=== PATIENT | male | born 1940 | race Two or more races ===

== ENCOUNTER 2025-03-07 14:31 | Inpatient (IN) | payer MEDICARE, OTHER ==
[~2025-03-07] VITALS: Ht 180.3 cm; Wt 106.1 kg
[2025-03-07 14:41] VITALS: O2SAT 98
[2025-03-07 15:21] LABS: ABG BASE EXCESS 5.5 mmol/L (-2.0-3.0); ABG OXYGEN SATURATION 94.4 % (94.0-98.0); ABG PCO2 63.0 mmHg (35.0-48.0); ABG PH 7.334 (7.350-7.450); ABG PO2 82.8 mmHg (83.0-108.0); ABG TOTAL HEMOGLOBIN 10.7 G/dL (13.5-17.5); FLOW, BLOOD GAS 5.00 L/min (0.00-30.00); FRACTIONATED INSPIRED OXYGEN 40.0 %; SITE, ABG RIGHT RADIAL
[2025-03-07 15:24] LABS: PLATELET COUNT (AUTO) 154 K/uL (150-450); RED BLOOD CELL COUNT(AUTO) 3.18 MIL/uL (4.5-6.0); RED CELL DISTRIBUTION WIDTH 20.6 % (11.5-15.0); WHITE BLOOD COUNT (AUTO) 8.6 K/uL (4.3-11.0)
[2025-03-07] MEDS ORDERED: ACET325T53 GT ×2 (15:31)
[2025-03-07] MEDS ORDERED: FURO20TA4 GT (15:31)
[2025-03-07] MEDS ORDERED: POTA20PA40 GT (15:31)
[2025-03-07] MEDS ORDERED: MELA3TAB41 GT (15:31)
[2025-03-07] MEDS ORDERED: OMEP20CA15 GT (15:31)
[2025-03-07] MEDS ORDERED: POLY119P2 GT (15:31)
[2025-03-07] MEDS ORDERED: DIPH25TA62 GT (15:31)
[2025-03-07] MEDS ORDERED: CRAN425C6 GT (15:31)
[2025-03-07] MEDS ORDERED: TRIA15CR2 TP (15:31)
[2025-03-07] MEDS ORDERED: CARB15DR EACHEYE (15:31)
[2025-03-07] MEDS ORDERED: ALBU2.5V38 IH (15:31)
[2025-03-07] MEDS ORDERED: GUAI100S9 GT (15:31)
[2025-03-07] MEDS ORDERED: NALO4SPR NS (15:31)
[2025-03-07] MEDS ORDERED: BISA10SU11 RC (15:31)
[2025-03-07] MEDS ORDERED: LACT-209 GT (15:31)
[2025-03-07] MEDS ORDERED: ATOR20TA GT (15:31)
[2025-03-07] MEDS ORDERED: ASPI-1169 GT (15:31)
[2025-03-07] MEDS ORDERED: IPRA0.2S9 IH ×2 (15:31)
[2025-03-07] MEDS ORDERED: FERR220S2 GT (15:31)
[2025-03-07] MEDS ORDERED: AMLO-212 GT (15:31)
[2025-03-07] MEDS ORDERED: HYDR-4076 GT (15:31)
[2025-03-07] MEDS ORDERED: ASCO500T10 GT (15:31)
[2025-03-07] MEDS ORDERED: TERA5CAP4 GT (15:31)
[2025-03-07] MEDS ORDERED: MULT-213 GT (15:31)
[2025-03-07] MEDS ORDERED: CHLO473M5 PO (15:31)
[2025-03-07] MEDS ORDERED: CARV25TA2 GT (15:31)
[2025-03-07] MEDS ORDERED: ZINC50TA69 GT (15:31)
[2025-03-07] MEDS ORDERED: ONDA-97 GT (15:31)
[2025-03-07] MEDS ORDERED: ALBU2.5V11 IH (15:31)
[2025-03-07] MEDS ORDERED: ACET-73 GT (15:31)
[2025-03-07] MEDS ORDERED: AMIN30LI66 GT (15:31)
[2025-03-07 15:33] LABS: CALCIUM, SERUM 8.9 mg/dL (8.5-10.1); CREATININE 0.8 mg/dL (0.6-1.3); SODIUM SERUM 128 mmol/L (136-145); UREA NITROGEN, BLOOD 39 mg/dL (7-18)
[2025-03-07 15:39] LABS: ASPARTATE AMINOTRANSFERASE 24 U/L (15-37); TOTAL PROTEIN, SERUM 7.1 g/dL (6.4-8.2)
[2025-03-07] MEDS: CEFEPIME 1 GM in IV D5W 50 ML IV ONE (16:00)
[2025-03-07] MEDS ORDERED: ACETAMINOPHEN 325 MG TABLET PO PRN (20:00)
[2025-03-07] MEDS ORDERED: ALBUTEROL FS 2.5 MG/3 ML VIAL.NEB IH PRN (20:00)
[2025-03-07] MEDS ORDERED: ONDANSETRON HCL/PF 4 MG/2 ML VIAL IVP PRN (20:00)
[2025-03-07] MEDS ORDERED: CARBOXYMETHYLCELLULOSE SODIUM 0.4 ML DROPERETTE EACHEYE PRN (20:00)
[2025-03-07] MEDS: ENOXAPARIN SODIUM 40 MG/0.4 ML DISP.SYRIN SQ SCH (20:00)
[2025-03-07] MEDS ORDERED: IPRATROPIUM NEB FS 0.5 MG/2.5 ML AMPUL.NEB IH PRN (20:00)
[2025-03-07] MEDS ORDERED: DOSING PER PHARMACY-CEFEPIME IVPB XX PRN (20:00)
[2025-03-07 20:15] VITALS: O2SAT 95
[2025-03-07 20:38] VITALS: BP 127/70; TEMP 97.5; O2SAT 92
[2025-03-07] MEDS: FUROSEMIDE 40 MG/4 ML VIAL IV SCH (20:59)
[2025-03-07] MEDS: CHLORHEXIDINE GLUCONATE 15 ML UDC MM SCH (20:59)
[2025-03-07] MEDS: CARVEDILOL 12.5 MG TABLET PO SCH (21:00)
[2025-03-07] MEDS: OMEPRAZOLE 20 MG CAPSULE.DR GT SCH (21:00)
[2025-03-07] MEDS: FERROUS SULFATE UDC 300 MG/5 ML UDC GT SCH (21:01)
[2025-03-07 22:14] VITALS: BP 126/70; O2SAT 94
[2025-03-07] MEDS: TERAZOSIN HCL 5 MG CAPSULE GT SCH (22:17)
[2025-03-07] MEDS: ATORVASTATIN 10 MG TABLET PO SCH (22:17)
[2025-03-07 23:05] VITALS: BP 127/78; TEMP 97.3; O2SAT 95
[2025-03-07] MEDS ORDERED: CEFEPIME 1 GM VIAL ONE (23:16)
[2025-03-07] MEDS: CEFEPIME 2 GM in IV D5W 100 ML IV SCH (23:53)
[2025-03-08] VITALS (19 sets, daily range): BP systolic 110–128; BP diastolic 61–68; TEMP 97.7–98.6; O2SAT 92–98
[2025-03-08] MEDS: ALBUTEROL FS 2.5 MG/3 ML VIAL.NEB IH SCH (00:23)
[2025-03-08] MEDS: IPRATROPIUM NEB FS 0.5 MG/2.5 ML AMPUL.NEB IH SCH (00:23)
[2025-03-08] MEDS: JEVITY 1.2 CAL 1,000 ML BOTTLE GT SCH (00:48)
[2025-03-08] MEDS ORDERED: CEFEPIME 1 GM VIAL ONE (05:22)
[2025-03-08] MEDS ORDERED: CARBOXYMETHYLCELLULOSE SODIUM 1 EA TUBE EACHEYE PRN (07:00)
[2025-03-08 07:39] LABS: PLATELET COUNT (AUTO) 153 K/uL (150-450); RED BLOOD CELL COUNT(AUTO) 3.31 MIL/uL (4.5-6.0); RED CELL DISTRIBUTION WIDTH 20.3 % (11.5-15.0); WHITE BLOOD COUNT (AUTO) 9.4 K/uL (4.3-11.0)
[2025-03-08 08:12] LABS: CALCIUM, SERUM 9.3 mg/dL (8.5-10.1); CREATININE 0.9 mg/dL (0.6-1.3); PHOSPHORUS 4.0 mg/dL (2.5-4.9); SODIUM SERUM 134.0 mmol/L (136-145); UREA NITROGEN, BLOOD 36.0 mg/dL (7-18)
[2025-03-08] MEDS: POLYETHYLENE GLYCOL 3350 17 GM POWD.PACK PO SCH (08:50)
[2025-03-08] MEDS: PANTOPRAZOLE 40 MG/PACK PACK GT SCH (08:51)
[2025-03-08] MEDS: ZINC SULFATE 220 MG CAPSULE GT SCH (08:51)
[2025-03-08] MEDS: MULTIVIT W/MINERALS 1 TAB TABLET GT SCH (08:52)
[2025-03-08] MEDS: ASCORBIC ACID 500 MG TABLET GT SCH (08:52)
[2025-03-08] MEDS ORDERED: AMLODIPINE BESYLATE 5 MG TABLET GT SCH (09:00)
[2025-03-08] MEDS: APIXABAN 5 MG TABLET PO SCH (09:00)
[2025-03-08] MEDS: ASPIRIN 81 MG TAB.CHEW GT SCH (09:00)
[2025-03-08] MEDS: PROSOURCE / PROSTAT (PYXIS) 30 ML UDC GT SCH (09:16)
[2025-03-08] MEDS ORDERED: PROSOURCE / PROSTAT (PYXIS) 30 ML UDC GT SCH (09:30)
[2025-03-08 09:45] LABS: ABG BASE EXCESS 3.8 mmol/L (-2.0-3.0); ABG OXYGEN SATURATION 92.1 % (94.0-98.0); ABG PCO2 43.2 mmHg (35.0-48.0); ABG PH 7.436 (7.350-7.450); ABG PO2 68.1 mmHg (83.0-108.0); ABG TOTAL HEMOGLOBIN 10.6 G/dL (13.5-17.5); FLOW, BLOOD GAS 10.00 L/min (0.00-30.00); FRACTIONATED INSPIRED OXYGEN 40.0 %; SITE, ABG LEFT RADIAL
[2025-03-08] MEDS ORDERED: ALBUTEROL HALF STRENGTH 1.25 MG/3 ML VIAL.NEB NEB PRN (11:00)
[2025-03-08 12:09] LABS: LDL 40 mg/dL (0-99)
[2025-03-08] MEDS: FUROSEMIDE 40 MG/4 ML VIAL IV SCH (12:53)
[2025-03-08] MEDS ORDERED: JEVITY 1.2 CAL 1,000 ML BOTTLE GT PRN (16:30)
[2025-03-09] VITALS (16 sets, daily range): BP systolic 104–128; BP diastolic 52–72; TEMP 97–98.6; O2SAT 94–98
[2025-03-09 07:04] LABS: PLATELET COUNT (AUTO) 157 K/uL (150-450); RED BLOOD CELL COUNT(AUTO) 3.12 MIL/uL (4.5-6.0); RED CELL DISTRIBUTION WIDTH 21.2 % (11.5-15.0); WHITE BLOOD COUNT (AUTO) 7.6 K/uL (4.3-11.0)
[2025-03-09 07:46] LABS: CREATINE KINASE, TOTAL 18.0 U/L (39-308)
[2025-03-09 07:47] LABS: ASPARTATE AMINOTRANSFERASE 21.0 U/L (15-37); CALCIUM, SERUM 9.1 mg/dL (8.5-10.1); CREATININE 1.1 mg/dL (0.6-1.3); PHOSPHORUS 3.5 mg/dL (2.5-4.9); SODIUM SERUM 133.0 mmol/L (136-145); TOTAL PROTEIN, SERUM 7.0 g/dL (6.4-8.2); UREA NITROGEN, BLOOD 41.0 mg/dL (7-18)
[2025-03-10] VITALS (19 sets, daily range): BP systolic 100–130; BP diastolic 53–68; TEMP 97.5–98.2; O2SAT 93–98
[2025-03-10 07:01] LABS: PLATELET COUNT (AUTO) 153 K/uL (150-450); RED BLOOD CELL COUNT(AUTO) 3.25 MIL/uL (4.5-6.0); RED CELL DISTRIBUTION WIDTH 20.9 % (11.5-15.0); WHITE BLOOD COUNT (AUTO) 7.1 K/uL (4.3-11.0)
[2025-03-10 07:04] LABS: ASPARTATE AMINOTRANSFERASE 23.0 U/L (15-37); CALCIUM, SERUM 8.8 mg/dL (8.5-10.1); CREATININE 1.1 mg/dL (0.6-1.3); PHOSPHORUS 3.5 mg/dL (2.5-4.9); SODIUM SERUM 135.0 mmol/L (136-145); TOTAL PROTEIN, SERUM 6.9 g/dL (6.4-8.2); UREA NITROGEN, BLOOD 42.0 mg/dL (7-18)
[2025-03-10 07:08] LABS: PTH, INTACT 45 pg/mL (15-65)
[2025-03-10] MEDS: FUROSEMIDE 100 MG/10 ML VIAL IV SCH (08:34)
[2025-03-10] MEDS: POTASSIUM CHLORIDE 20 MEQ POWDER PACKET GT SCH (08:34)
[2025-03-10] MEDS ORDERED: APIXABAN 2.5 MG TABLET PO SCH (17:00)
[2025-03-10] MEDS: ALBUTEROL FS 2.5 MG/3 ML VIAL.NEB IH SCH (19:40)
[2025-03-10] MEDS: IPRATROPIUM NEB FS 0.5 MG/2.5 ML AMPUL.NEB IH SCH (19:40)
[2025-03-11] VITALS (12 sets, daily range): BP systolic 111–132; BP diastolic 63–71; TEMP 97.5–98.3; O2SAT 93–99
[2025-03-11 06:59] LABS: PLATELET COUNT (AUTO) 165 K/uL (150-450); RED BLOOD CELL COUNT(AUTO) 3.47 MIL/uL (4.5-6.0); RED CELL DISTRIBUTION WIDTH 22.0 % (11.5-15.0); WHITE BLOOD COUNT (AUTO) 7.9 K/uL (4.3-11.0)
[2025-03-11 07:29] LABS: ASPARTATE AMINOTRANSFERASE 25.0 U/L (15-37); CALCIUM, SERUM 9.1 mg/dL (8.5-10.1); CREATININE 1.0 mg/dL (0.6-1.3); PHOSPHORUS 2.4 mg/dL (2.5-4.9); SODIUM SERUM 137.0 mmol/L (136-145); TOTAL PROTEIN, SERUM 7.1 g/dL (6.4-8.2); UREA NITROGEN, BLOOD 42.0 mg/dL (7-18)
[2025-03-11] MEDS: POTASSIUM CHLORIDE 20 MEQ POWDER PACKET NG SCH (08:53)
[2025-03-11] MEDS ORDERED: NEUTRA PHOS 1 POWD.PACKET GT ONE (15:30)
[2025-03-12 06:07] LABS: *SPE A/G RATIO 0.8 (0.7-1.7); *SPE ALBUMIN 2.7 g/dL (2.9-4.4); *SPE ALPHA-1-GLOBULIN 0.4 g/dL (0.0-0.4); *SPE ALPHA-2-GLOBULIN 0.7 g/dL (0.4-1.0); *SPE BETA GLOBULIN 1.0 g/dL (0.7-1.3); *SPE GLOBULIN, TOTAL 3.6 g/dL (2.2-3.9); *SPE M-SPIKE Not Observed g/dL (Not Observed); *SPE PROTEIN TOTAL 6.3 g/dL (6.0-8.5); *SPEGAMMA GLOBULIN 1.5 g/dL (0.4-1.8)
== END 2025-03-11 14:30 | DRG 291 ==
LOC: ER 14:45 → TELE1 16:14 → MEDSG1 03-11 10:37
PROVIDERS: ADMIT Nurse Practitioner Acute Care
DX: I13.0 Hypertensive heart and chronic kidney disease with heart failure and stage 1 through stage 4 chronic kidney disease, or unspecified chronic kidney disease (principal); I50.31 Acute diastolic (congestive) heart failure; J96.21 Acute and chronic respiratory failure with hypoxia; J96.22 Acute and chronic respiratory failure with hypercapnia; R53.2 Functional quadriplegia; G93.49 Other encephalopathy; E44.0 Moderate protein-calorie malnutrition; E86.1 Hypovolemia; R13.10 Dysphagia, unspecified; J95.01 Hemorrhage from tracheostomy stoma; Z79.01 Long term (current) use of anticoagulants; E66.2 Morbid (severe) obesity with alveolar hypoventilation; G40.909 Epilepsy, unspecified, not intractable, without status epilepticus; N18.9 Chronic kidney disease, unspecified; D64.9 Anemia, unspecified; D68.59 Other primary thrombophilia; E87.1 Hypo-osmolality and hyponatremia; I48.91 Unspecified atrial fibrillation; Z20.822 Contact with and (suspected) exposure to COVID-19; S06.5XAS Traumatic subdural hemorrhage with loss of consciousness status unknown, sequela; I25.2 Old myocardial infarction; Z87.39 Personal history of other diseases of the musculoskeletal system and connective tissue; Z86.19 Personal history of other infectious and parasitic diseases; Z79.51 Long term (current) use of inhaled steroids; Z79.82 Long term (current) use of aspirin; Z79.899 Other long term (current) drug therapy; W44.F9XA Other object of natural or organic material, entering into or through a natural orifice, initial encounter; Y92.129 Unspecified place in nursing home as the place of occurrence of the external cause; E78.5 Hyperlipidemia, unspecified; E88.09 Other disorders of plasma-protein metabolism, not elsewhere classified; Y84.8 Other medical procedures as the cause of abnormal reaction of the patient, or of later complication, without mention of misadventure at the time of the procedure
CPT/HCPCS: 31720; 36415; 36600; 71045-TC; 71250-TC; 80048-TC; 80053-TC; 80061-TC; 80076-TC; 82550-TC; 82803-TC; 83605-TC; 83735-TC; 83880; 83970; 84100-TC; 84155; 84165; 84484-TC; 85025-TC; 87040-TC; 93307-TC; 93970-TC; 94640-TC; 94760-TC; 94762-TC; 94799-TC; A4223; A6213; G0378; J0692; J1938; J7050; J7060